=== PATIENT | male | born 1990 | race Caucasian/White ===

== ENCOUNTER 2022-08-19 17:39 | Emergency (ER) | payer BC ==
[2022-08-19] MEDS ORDERED: Ketorolac 60 MG/2 ML SDV IM ONE (19:42)
== END 2022-08-19 21:11 | disposition home or self-care (01) ==
LOC: JD.ED 17:39
DX: S82.852A Displaced trimalleolar fracture of left lower leg, initial encounter for closed fracture (principal); F17.210 Nicotine dependence, cigarettes, uncomplicated; X50.1XXA Overexertion from prolonged static or awkward postures, initial encounter; Y93.39 Activity, other involving climbing, rappelling and jumping off
CPT/HCPCS: 29515; 73610; 96372; 99283; J1885; 29505

== ENCOUNTER 2022-08-29 09:00 | Day surgery (SDC) | payer BC ==
[~2022-08-29 09:00] MED LIST: Lactated Ringers 1,000 ML IV SCH; Sodium Chloride 0.9% 10 ML Syringe FLUSH PRN; Sodium Chloride 0.9% 10 ML Syringe FLUSH SCH
[2022-08-29] MEDS ORDERED: Midazolam 1 MG/ML 2 ML SDV ONE (09:14)
[2022-08-29] MEDS ORDERED: ceFAZolin 2 GM Vial ONE (09:15)
[2022-08-29] MEDS ORDERED: fentaNYL 250 MCG/5 ML SDV ONE (09:15)
[2022-08-29] MEDS ORDERED: Lidocaine 1% 2 ML ONE (09:15)
[2022-08-29] MEDS ORDERED: Propofol 200 MG/20 ML SDV ONE ×2 (09:15)
[2022-08-29] MEDS ORDERED: Bupivacaine 0.25% 10 ML SDV ONE (09:23)
[2022-08-29] MEDS ORDERED: HYDROmorphone 0.5 MG/0.5 ML Syringe IVPUSH PRN (09:38)
[2022-08-29] MEDS ORDERED: fentaNYL 100 MCG/2 ML SDV IVPUSH PRN (09:38)
[2022-08-29] MEDS ORDERED: Ondansetron 4 MG/2 ML SDV IVPUSH PRN (09:38)
[2022-08-29] MEDS ORDERED: Ketorolac 30 MG/ML SDV ONE (10:12)
[2022-08-29] MEDS ORDERED: Ondansetron 4 MG/2 ML SDV ONE (10:12)
[2022-08-29] MEDS ORDERED: Dexamethasone 4 MG/ML 5 ML MDV ONE (10:12)
[2022-08-29] MEDS ORDERED: HYDROmorphone 0.5 MG/0.5 ML Syringe ONE (10:43)
[2022-08-29] MEDS ORDERED: EPINEPHrine 1 MG/ML SDV ONE (10:55)
[2022-08-29] MEDS ORDERED: Ropivacaine 0.5% 5 MG/ML 30 ML SDV ONE (10:55)
[2022-08-29] MEDS ORDERED: Acetaminophen/HYDROcodone 325-5 MG Tab PO PRN (13:01)
== END 2022-08-29 14:52 | disposition home or self-care (01) ==
LOC: JD.SDS 09:00
PROVIDERS: ATTEND Orthopaedic Surgery
DX: S82.842A Displaced bimalleolar fracture of left lower leg, initial encounter for closed fracture (principal); S93.432A Sprain of tibiofibular ligament of left ankle, initial encounter; F17.210 Nicotine dependence, cigarettes, uncomplicated; Z79.899 Other long term (current) drug therapy
CPT/HCPCS: 27814; 27829; 64445; 76000; A9270; C1713; C1769; C1776; J0171; J0690; J1100; J1170; J1885; J2250; J2405; J2704; J2795; J3010; J3490; J7120; 01480; 64450

== ENCOUNTER 2023-09-01 12:31 | Emergency (ER) | payer BC, OTHER ==
[2023-09-01] MEDS: cefTRIAXone 1 GM, Lidocaine 1% 2.1 ML IM ONE (13:32)
[2023-09-01] MEDS: Lidocaine 1% 10 ML MDV INJECT ONE (13:32)
[2023-09-01] MEDS: Bupivacaine 0.5% 10 ML SDV INJECT ONE (13:34)
[2023-09-01] MEDS: Diphtheria,Pertussis(Acell),Tetanus Vaccine 0.5 ML Syringe IM ONE (13:34)
[2023-09-01] MEDS: Ketorolac 60 MG/2 ML SDV IM ONE (14:56)
== END 2023-09-01 14:20 | disposition home or self-care (01) ==
LOC: JD.ED 12:31
DX: S68.124A Partial traumatic metacarpophalangeal amputation of right ring finger, initial encounter (principal); Z23 Encounter for immunization; W26.8XXA Contact with other sharp object(s), not elsewhere classified, initial encounter
CPT/HCPCS: 64450; 73140; 90471; 90715; 96372; 99283; J0665; J0696; J3490

== ENCOUNTER 2025-01-26 13:54 | Emergency (ER) | payer BC, OTHER ==
[2025-01-26] MEDS ORDERED: Sodium Chloride 0.9% 10 ML Syringe FLUSH PRN (15:49)
[2025-01-26 16:09] LABS: BASOPHILS ABSOLUTE AUTO 0.0 K/mm3 (0.0-0.2); BASOPHILS PERCENT AUTO 0.4 % (0.0-1.0); EOSINOPHILS ABSOLUTE AUTO 0.2 K/mm3 (0.0-0.4); EOSINOPHILS PERCENT AUTO 2.5 % (0.0-6.0); IMMATURE GRAN ABSOLUTE AUTO 0.03 K/mm3 (0.00-0.05); IMMATURE GRAN PERCENT AUTO 0.4 % (0.0-0.4); LYMPHOCYTES ABSOLUTE AUTO 1.9 K/mm3 (1.0-4.8); LYMPHOCYTES PERCENT AUTO 25.3 % (24.0-44.0); MEAN PLATELET VOLUME 8.6 fl (9.4-12.4); MONOCYTES ABSOLUTE AUTO 0.8 K/mm3 (0.0-0.8); MONOCYTES PERCENT AUTO 10.7 % (0.0-8.0); NEUTROPHILS ABSOLUTE AUTO 4.6 K/mm3 (1.8-7.7); NEUTROPHILS PERCENT AUTO 60.7 % (41.0-71.0); NRBC ABSOLUTE 0.00 (0.00-0.02); NRBC PERCENT 0.0 % (0.0-0.2); PLATELET COUNT,PLT 206 K/mm3 (150-400); RED BLOOD CELL COUNT 3.99 M/mm3 (4.52-5.90); WHITE BLOOD CELL COUNT,WBC 7.60 K/mm3 (3.9-11.3)
[2025-01-26 16:31] LABS: A/G RATIO 0.9 (1-2); ALANINE AMINOTRANSFERASE,ALT 24.0 U/L (16-63); ASPARTATE AMNIOTRANSFERASE,AST 19.0 U/L (15-37); BILIRUBIN TOTAL 0.5 mg/dL (0.2-1.0); BLOOD UREA NITROGEN,BUN 12.0 mg/dL (7-18); CARBON DIOXIDE,CO2 27.0 mEq/L (21-32); CHLORIDE,CL 106.0 mEq/L (98-107); CREATININE 0.9 mg/dL (0.7-1.3); EST CRCL DRUG DOSING (CG) 92.2 mL/min; ESTIMATED GFR 114.0 mL/min (>60); GLUCOSE RANDOM 84.0 mg/dL (70-99); POTASSIUM,K 4.0 mEq/L (3.5-5.1); PROTEIN TOTAL,TP 7.1 g/dl (6.4-8.2); SODIUM,NA 141.0 mEq/L (136-145)
[2025-01-26 17:05] LABS: APPEARANCE,URINE CLEAR (Clear); GLUCOSE,URINE NEGATIVE (Negative); OCCULT BLOOD,URINE NEGATIVE (Negative)
[2025-01-26 17:24] LABS: EPITHELIAL CELLS,URINE 0-5 /hpf (0-5)
== END 2025-01-26 18:52 | disposition home or self-care (01) ==
LOC: JD.ED 13:54
DX: M54.42 Lumbago with sciatica, left side (principal); N39.0 Urinary tract infection, site not specified; Z79.899 Other long term (current) drug therapy
CPT/HCPCS: 36415; 72131; 80053; 81001; 83690; 85025; 87086; 96372; 99284; J1171